=== PATIENT | male | born 1965 | race Caucasian/White ===

== ENCOUNTER 2020-09-13 22:02 | Observation (INO) | payer OTHER, SELFPAY ==
[2020-09-13 22:59] LABS: #Eosinphils 0.1 thou/uL (0.0-0.7); #Lymphocytes 1.4 thou/uL (1.20-3.40); #Monocytes 0.8 thou/uL (0.11-0.59); #Neutrophils 7.9 thou/uL (1.40-6.50); %Basophils 0.3 % (0.0-1.0); %Eosinophils 1.3 % (0.0-10.0); %Lymphocytes 13.5 % (21.0-51.0); %Monocytes 7.6 % (0.0-10.0); %Neutrophils 77.3 % (42.0-75.0); Hemoglobin 16.1 g/dL (14.0-18.0); Mean Corpuscular HGB CONC 34.2 g/dL (32.0-36.0); Mean Corpuscular Hemoglobin 31.6 pg (27.0-31.0); Mean Corpuscular Volume 92.4 fL (78.0-98.0); Mean Platelet Volume 7.5 fL (7.4-10.4); Platelet Count 160 thou/uL (130-400); RBC Distribution Width 12.2 % (11.5-14.5); White Blood Cell (WBC) Count 10.2 thou/uL (4.8-10.8)
[2020-09-14 03:13] VITALS: BMI 29.0
[2020-09-14] MEDS ORDERED: Ondansetron ODT 4 MG TAB PO PRN (06:15)
[2020-09-14] MEDS ORDERED: Ondansetron PF 4 MG/2 ML Vial IVP PRN (06:15)
[2020-09-14] MEDS ORDERED: hydrALAZINE 20 MG/ML VIAL SLOW IVP PRN (06:22)
[2020-09-14] MEDS ORDERED: Metoprolol Tartrate 5 MG/5 ML VIAL IVP PRN (06:23)
[2020-09-14 06:37] LABS: #Basophils 0.1 thou/uL (0.0-0.2); #Eosinphils 0.3 thou/uL (0.0-0.7); #Lymphocytes 2.6 thou/uL (1.20-3.40); #Monocytes 1.1 thou/uL (0.11-0.59); #Neutrophils 6.5 thou/uL (1.40-6.50); %Basophils 0.5 % (0.0-1.0); %Eosinophils 2.5 % (0.0-10.0); %Lymphocytes 24.4 % (21.0-51.0); %Monocytes 10.1 % (0.0-10.0); %Neutrophils 62.5 % (42.0-75.0); Hemoglobin 15.4 g/dL (14.0-18.0); Mean Corpuscular HGB CONC 33.8 g/dL (32.0-36.0); Mean Corpuscular Hemoglobin 31.4 pg (27.0-31.0); Mean Platelet Volume 7.3 fL (7.4-10.4); Platelet Count 154 thou/uL (130-400); RBC Distribution Width 12.2 % (11.5-14.5); Red Blood Cell (RBC) Count 4.91 mill/uL (4.70-6.10); White Blood Cell (WBC) Count 10.4 thou/uL (4.8-10.8)
[2020-09-14 09:29] LABS: SARS-CoV-2 PCR by NAA Not Detected (NotDetected)
[2020-09-14] MEDS: Acetaminophen 325 MG TAB PO PRN (10:21)
[2020-09-15 06:03] LABS: #Basophils 0.1 thou/uL (0.0-0.2); #Eosinphils 0.5 thou/uL (0.0-0.7); #Lymphocytes 2.7 thou/uL (1.20-3.40); #Monocytes 0.8 thou/uL (0.11-0.59); #Neutrophils 6.2 thou/uL (1.40-6.50); %Basophils 0.7 % (0.0-1.0); %Eosinophils 5.1 % (0.0-10.0); %Lymphocytes 26.4 % (21.0-51.0); %Monocytes 7.5 % (0.0-10.0); %Neutrophils 60.3 % (42.0-75.0); Hemoglobin 15.8 g/dL (14.0-18.0); Mean Corpuscular HGB CONC 32.9 g/dL (32.0-36.0); Mean Corpuscular Hemoglobin 30.4 pg (27.0-31.0); Mean Corpuscular Volume 92.5 fL (78.0-98.0); Mean Platelet Volume 7.3 fL (7.4-10.4); Platelet Count 149 thou/uL (130-400); RBC Distribution Width 12.4 % (11.5-14.5); Red Blood Cell (RBC) Count 5.21 mill/uL (4.70-6.10); White Blood Cell (WBC) Count 10.2 thou/uL (4.8-10.8)
[2020-09-15 06:24] LABS: Anion Gap 8 mmol/L (10-20); BUN (Urea Nitrogen) 10 mg/dL (8.4-25.7); Calc. Creatinine Clearance 111 mL/min (70-130); Calcium 8.5 mg/dL (7.8-10.44); Carbon Dioxide 28 mmol/L (22-29); Chloride 107 mmol/L (98-107); Glucose 93 mg/dL (70-105); Potassium 4.2 mmol/L (3.5-5.1); Sodium 139 mmol/L (136-145)
[2020-09-15 12:20] VITALS: BP 156/88; TEMP 98.2
[2020-09-15] MEDS: Acetaminophen 325 MG TAB PO PRN (14:01)
== END 2020-09-15 15:25 | disposition home or self-care (01) ==
LOC: ERS 22:02 → SURG A 09-14 01:51
PROVIDERS: ADMIT Student in an Organized Health Care Education/Training Program; ATTEND Internal Medicine
DX: R04.0 Epistaxis (principal); R00.0 Tachycardia, unspecified; I10 Essential (primary) hypertension; Z20.822 Contact with and (suspected) exposure to COVID-19
CPT/HCPCS: 36415; 80048; 85025; 87635; 99285; G0378; U0003; U0005

== ENCOUNTER 2021-11-28 09:55 | Inpatient (IN) | payer SELFPAY ==
[2021-11-28] MEDS ORDERED: metroNIDAZOLE 500 MG/100 ML BAG ONE (10:22)
[2021-11-28 11:31] LABS: INR-International Normal Ratio 1.1; PTT 32.5 sec (22.9-36.1); Prothrombin Time 13.9 sec (12.0-14.7)
[2021-11-28 13:22] LABS: SARS-CoV-2 NAA Rapid Test Not Detected (NotDetected)
[2021-11-28] MEDS ORDERED: HYDROmorphone 2 MG/ML VIAL ONE (15:39)
[2021-11-28] MEDS ORDERED: Famotidine/PF 20 mg/2ml Vial ONE (15:39)
[2021-11-28] MEDS ORDERED: fentaNYL Citrate/PF 100 MCG/2 ML SYRINGE ONE (15:39)
[2021-11-28] MEDS ORDERED: Sodium Chloride 0.9% 100 ML ONE (16:02)
[2021-11-28] MEDS ORDERED: Piperacillin/Tazobactam 3.375 GM VIAL ONE (16:02)
[2021-11-28] MEDS ORDERED: Ondansetron PF 4 MG/2 ML Vial ONE (16:13)
[2021-11-28] MEDS ORDERED: Dexamethasone 20 MG/5 ML VIAL ONE (16:13)
[2021-11-28] MEDS ORDERED: Glycopyrrolate 0.2 MG/ML 5 ML SYRINGE ONE (16:13)
[2021-11-28] MEDS ORDERED: Lidocaine 1% PF 5 ML VIAL ONE (16:13)
[2021-11-28] MEDS ORDERED: Succinylcholine 200 MG/10 ml SYRINGE FS ONE (16:13)
[2021-11-28] MEDS ORDERED: PHENYLEPHRINE-NS 100 MCG/ML 10 ML SYRINGE ONE (16:13)
[2021-11-28] MEDS ORDERED: PROPOFOL 200 MG/20 ML VIAL ONE (16:13)
[2021-11-28] MEDS ORDERED: Labetalol HCl 100 MG/20 ML VIAL ONE (16:13)
[2021-11-28] MEDS ORDERED: Ketorolac Tromethamine 30 MG/ML VIAL ONE (16:13)
[2021-11-28] MEDS ORDERED: Rocuronium Bromide 10 MG/ML (10ML VIAL) ONE (16:13)
[2021-11-28] MEDS ORDERED: Phenylephrine 10 MG/ML VIAL ONE (17:18)
[2021-11-28] MEDS ORDERED: Dexmedetomidine 200 MCG/2 ML VIAL ONE (18:00)
[2021-11-28] MEDS ORDERED: Ondansetron HCl/PF 4 MG/2 ML Vial IVP PRN (20:23)
[2021-11-28] MEDS ORDERED: Promethazine HCl 25 MG/ML VIAL IM PRN ×2 (20:23→20:43)
[2021-11-28] MEDS ORDERED: Promethazine HCl 25 MG/ML VIAL IVPB PRN (20:23)
[2021-11-28] MEDS ORDERED: Fentanyl 100 MCG/2 ML VIAL ONE (20:36)
[2021-11-28] MEDS ORDERED: Dextrose 50% Abboject 50 ML SYRINGE SLOW IVP PRN (20:43)
[2021-11-28] MEDS ORDERED: Dextrose 5% in Water 1,000 ML IV PRN (20:43)
[2021-11-28] MEDS ORDERED: Morphine 4 MG/ML VIAL SLOW IVP PRN (20:43)
[2021-11-28] MEDS ORDERED: Morphine 2 MG/ML VIAL SLOW IVP PRN (20:51)
[2021-11-28 22:51] VITALS: BMI 28.2
[2021-11-28] MEDS ORDERED: Famotidine/PF 20 mg/2ml Vial SLOW IVP SCH (23:30)
[2021-11-28] MEDS: Sodium Chloride 0.9% 1,000 ML IV SCH (23:38)
[2021-11-28] MEDS: Piperacillin/Tazobactam 3.375 GM in Sodium Chloride 0.9% 100 ML IVPB SCH (23:55)
[2021-11-29] MEDS: Sodium Chloride 0.9% 1,000 ML IV SCH ×2 (02:37→15:33)
[2021-11-29] MEDS ORDERED: Naloxone HCl 0.4 mg/ml Vial IV PRN (04:30)
[2021-11-29] MEDS: HYDROmorphone 10 MG in Sodium Chloride 0.9% 95 ML IVPB PRN (04:57)
[2021-11-29 06:17] LABS: ALT (SGPT) 22 U/L (8-55); AST (SGOT) 19 U/L (5-34); Albumin 3.6 g/dL (3.5-5.0); Alkaline Phosphatase 53 U/L (40-110); Anion Gap 11 mmol/L (10-20); BUN (Urea Nitrogen) 11 mg/dL (8.4-25.7); Bilirubin, Total 1.8 mg/dL (0.2-1.2); Calc. Creatinine Clearance 114 mL/min (70-130); Calcium 8.1 mg/dL (7.8-10.44); Carbon Dioxide 23 mmol/L (22-29); Chloride 110 mmol/L (98-107); Globulin 2.6 g/dL (2.4-3.5); Glucose 167 mg/dL (70-105); Magnesium 1.8 mg/dL (1.6-2.6); Potassium 3.9 mmol/L (3.5-5.1); Protein, Total 6.2 g/dL (6.0-8.3); Sodium 140 mmol/L (136-145)
[2021-11-29 06:25] LABS: Band 39 % (5-11); Lymphocytes 2 % (21-51); MDiff Complete? YES; Mean Corpuscular HGB CONC 32.3 g/dL (32.0-36.0); Mean Corpuscular Hemoglobin 30.6 pg (27.0-31.0); Mean Corpuscular Volume 94.7 fL (78.0-98.0); Mean Platelet Volume 7.3 fL (7.4-10.4); Neutrophil 59 % (42-75); Platelet Count 195 thou/uL (130-400); Platelet Morphology Comment Appears Adequate; RBC Distribution Width 12.5 % (11.5-14.5); Red Blood Cell (RBC) Count 4.92 mill/uL (4.70-6.10); White Blood Cell (WBC) Count 23.4 thou/uL (4.8-10.8)
[2021-11-29 06:26] LABS: Phosphorus 1.5 mg/dL (2.3-4.7)
[2021-11-29] MEDS: hydrALAZINE 20 MG/ML VIAL SLOW IVP PRN (06:31)
[2021-11-29] MEDS ORDERED: Magnesium 2 GM/50 ML(in water) 2 GM in Premix Bag 1 BAG IVPB SCH (07:45)
[2021-11-29] MEDS ORDERED: Lactated Ringer's 1,000 ML IV SCH (08:00)
[2021-11-29 08:19] LABS: Troponin I Less than 0.010 ng/mL (< 0.028)
[2021-11-29] MEDS: Piperacillin/Tazobactam 3.375 GM in Sodium Chloride 0.9% 100 ML IVPB SCH ×2 (08:22→15:33)
[2021-11-29] MEDS: Famotidine/PF 20 mg/2ml Vial SLOW IVP SCH (08:23)
[2021-11-29 09:16] LABS: Amphetamine Not Detected (NotDetected); Barbiturates Screen Not Detected (NotDetected); Benzodiazepine Screen Not Detected (NotDetected); Cocaine Metabolite Screen Not Detected (NotDetected); Methadone Not Detected (NotDetected); Methamphetamine Not Detected (NotDetected); Opiate Screen Detected (NotDetected); Oxycodone Screen Not Detected (NotDetected); Phencyclidine (PCP) Not Detected (NotDetected); THC/Cannabinoid Screen Not Detected (NotDetected); Tricyclic Screen Not Detected (NotDetected)
[2021-11-29] MEDS ORDERED: Famotidine 40 MG/4 ML VIAL SLOW IVP SCH (22:45)
[2021-11-30] MEDS: Piperacillin/Tazobactam 3.375 GM in Sodium Chloride 0.9% 100 ML IVPB SCH ×4 (00:35→23:31)
[2021-11-30] MEDS: Sodium Chloride 0.9% 1,000 ML IV SCH ×3 (01:50→14:43)
[2021-11-30] MEDS: Famotidine/PF 20 mg/2ml Vial SLOW IVP SCH (01:50)
[2021-11-30] MEDS ORDERED: Sodium Chloride 0.9% (PF) 10 ML VIAL FS PRN (08:30)
[2021-11-30] MEDS: Enoxaparin Sodium 40 MG/0.4 ML SYRINGE SC SCH (08:33)
[2021-11-30] MEDS: Pantoprazole 40 MG VIAL IVP SCH (08:33)
[2021-11-30 08:51] LABS: Mean Corpuscular HGB CONC 32.2 g/dL (32.0-36.0); Mean Corpuscular Hemoglobin 30.6 pg (27.0-31.0); Mean Corpuscular Volume 94.8 fL (78.0-98.0); Mean Platelet Volume 7.4 fL (7.4-10.4); Platelet Count 192 thou/uL (130-400); RBC Distribution Width 12.4 % (11.5-14.5); Red Blood Cell (RBC) Count 4.56 mill/uL (4.70-6.10); White Blood Cell (WBC) Count 20.9 thou/uL (4.8-10.8)
[2021-11-30 08:52] LABS: Anion Gap 10 mmol/L (10-20); BUN (Urea Nitrogen) 11 mg/dL (8.4-25.7); Calc. Creatinine Clearance 126 mL/min (70-130); Calcium 8.4 mg/dL (7.8-10.44); Carbon Dioxide 24 mmol/L (22-29); Chloride 107 mmol/L (98-107); Glucose 98 mg/dL (70-105); Magnesium 2.1 mg/dL (1.6-2.6); Sodium 137 mmol/L (136-145)
[2021-11-30 08:54] LABS: Lymphocytes 10 % (21-51); MDiff Complete? YES; Monocytes 1 % (0-10); Neutrophil 89 % (42-75); Platelet Morphology Comment Appears Adequate; RBC Morphology Normal
[2021-11-30] MEDS ORDERED: Famotidine 20 MG TAB PO SCH (09:00)
[2021-11-30] MEDS ORDERED: Famotidine 40 MG/4 ML VIAL SLOW IVP SCH (09:00)
[2021-11-30 09:08] LABS: Phosphorus 1.3 mg/dL (2.3-4.7)
[2021-11-30] MEDS ORDERED: Sodium Phosphate 30 MMOL in Sodium Chloride 0.9% 250 ML 250 ML IVPB SCH (11:00)
[2021-11-30] MEDS: HYDROmorphone 10 MG in Sodium Chloride 0.9% 95 ML IVPB PRN (20:00)
[2021-12-01 06:18] LABS: #Eosinphils 0.1 thou/uL (0.0-0.7); #Lymphocytes 1.6 thou/uL (1.20-3.40); #Monocytes 1.2 thou/uL (0.11-0.59); #Neutrophils 9.7 thou/uL (1.40-6.50); %Eosinophils 1.1 % (0.0-10.0); %Lymphocytes 12.9 % (21.0-51.0); %Monocytes 9.2 % (0.0-10.0); %Neutrophils 76.9 % (42.0-75.0); Hemoglobin 13.2 g/dL (14.0-18.0); Mean Corpuscular HGB CONC 32.4 g/dL (32.0-36.0); Mean Corpuscular Hemoglobin 30.4 pg (27.0-31.0); Mean Corpuscular Volume 93.9 fL (78.0-98.0); Mean Platelet Volume 7.2 fL (7.4-10.4); Platelet Count 166 thou/uL (130-400); RBC Distribution Width 12.1 % (11.5-14.5); Red Blood Cell (RBC) Count 4.35 mill/uL (4.70-6.10); White Blood Cell (WBC) Count 12.6 thou/uL (4.8-10.8)
[2021-12-01] MEDS: Sodium Chloride 0.9% 1,000 ML IV SCH ×3 (06:38→16:11)
[2021-12-01 06:52] LABS: Anion Gap 11 mmol/L (10-20); BUN (Urea Nitrogen) 11 mg/dL (8.4-25.7); Calc. Creatinine Clearance 130 mL/min (70-130); Calcium 8.4 mg/dL (7.8-10.44); Carbon Dioxide 24 mmol/L (22-29); Chloride 106 mmol/L (98-107); Glucose 88 mg/dL (70-105); Phosphorus 1.9 mg/dL (2.3-4.7); Potassium 3.6 mmol/L (3.5-5.1); Sodium 137 mmol/L (136-145)
[2021-12-01] MEDS ORDERED: Potassium Phosphate 30 MMOL in Sodium Chloride 0.9% 250 ML 250 ML IVPB SCH (09:00)
[2021-12-01] MEDS: Piperacillin/Tazobactam 3.375 GM in Sodium Chloride 0.9% 100 ML IVPB SCH ×2 (09:00→16:11)
[2021-12-01] MEDS: Enoxaparin Sodium 40 MG/0.4 ML SYRINGE SC SCH (09:19)
[2021-12-01] MEDS: Pantoprazole 40 MG VIAL IVP SCH (09:31)
[2021-12-01] MEDS: hydrALAZINE 20 MG/ML VIAL SLOW IVP PRN (11:36)
[2021-12-01] MEDS ORDERED: Labetalol HCl 100 MG/20 ML VIAL SLOW IVP PRN (12:47)
[2021-12-02] MEDS: Piperacillin/Tazobactam 3.375 GM in Sodium Chloride 0.9% 100 ML IVPB SCH ×4 (00:45→23:52)
[2021-12-02] MEDS: Sodium Chloride 0.9% 1,000 ML IV SCH ×3 (01:00→10:20)
[2021-12-02 05:39] LABS: #Eosinphils 0.3 thou/uL (0.0-0.7); #Lymphocytes 1.3 thou/uL (1.20-3.40); #Monocytes 1.3 thou/uL (0.11-0.59); %Basophils 0.1 % (0.0-1.0); %Eosinophils 2.2 % (0.0-10.0); %Lymphocytes 9.7 % (21.0-51.0); %Monocytes 10.1 % (0.0-10.0); %Neutrophils 77.9 % (42.0-75.0); Hemoglobin 14.3 g/dL (14.0-18.0); Mean Corpuscular HGB CONC 32.3 g/dL (32.0-36.0); Mean Corpuscular Hemoglobin 30.5 pg (27.0-31.0); Mean Corpuscular Volume 94.6 fL (78.0-98.0); Mean Platelet Volume 7.4 fL (7.4-10.4); Platelet Count 218 thou/uL (130-400); RBC Distribution Width 12.3 % (11.5-14.5); Red Blood Cell (RBC) Count 4.68 mill/uL (4.70-6.10); White Blood Cell (WBC) Count 12.9 thou/uL (4.8-10.8)
[2021-12-02 06:01] LABS: ALT (SGPT) 19 U/L (8-55); AST (SGOT) 16 U/L (5-34); Albumin 3.5 g/dL (3.5-5.0); Alkaline Phosphatase 51 U/L (40-110); Bilirubin, Direct 1.9 mg/dL (0.1-0.3); Bilirubin, Total 2.9 mg/dL (0.2-1.2); Protein, Total 6.4 g/dL (6.0-8.3)
[2021-12-02 06:05] LABS: Anion Gap 15 mmol/L (10-20); BUN (Urea Nitrogen) 13 mg/dL (8.4-25.7); Calc. Creatinine Clearance 128 mL/min (70-130); Calcium 8.8 mg/dL (7.8-10.44); Carbon Dioxide 22 mmol/L (22-29); Chloride 108 mmol/L (98-107); Glucose 91 mg/dL (70-105); Magnesium 2.1 mg/dL (1.6-2.6); Phosphorus 2.8 mg/dL (2.3-4.7); Potassium 3.9 mmol/L (3.5-5.1); Sodium 141 mmol/L (136-145)
[2021-12-02] MEDS ORDERED: Sodium Phosphate 30 MMOL in Sodium Chloride 0.9% 250 ML 250 ML IVPB SCH (07:30)
[2021-12-02] MEDS: Pantoprazole 40 MG VIAL IVP SCH (08:03)
[2021-12-02] MEDS: Enoxaparin Sodium 40 MG/0.4 ML SYRINGE SC SCH (08:05)
[2021-12-02] MEDS: HYDROmorphone 10 MG in Sodium Chloride 0.9% 95 ML IVPB PRN (09:22)
[2021-12-03] MEDS: hydrALAZINE 20 MG/ML VIAL SLOW IVP PRN (00:02)
[2021-12-03 06:19] LABS: #Eosinphils 0.6 thou/uL (0.0-0.7); #Lymphocytes 1.5 thou/uL (1.20-3.40); #Monocytes 1.1 thou/uL (0.11-0.59); #Neutrophils 11.2 thou/uL (1.40-6.50); %Basophils 0.1 % (0.0-1.0); %Lymphocytes 10.2 % (21.0-51.0); %Monocytes 7.7 % (0.0-10.0); %Neutrophils 78.1 % (42.0-75.0); Hemoglobin 14.2 g/dL (14.0-18.0); Mean Corpuscular HGB CONC 33.8 g/dL (32.0-36.0); Mean Corpuscular Hemoglobin 31.2 pg (27.0-31.0); Mean Corpuscular Volume 92.4 fL (78.0-98.0); Platelet Count 249 thou/uL (130-400); RBC Distribution Width 12.8 % (11.5-14.5); Red Blood Cell (RBC) Count 4.55 mill/uL (4.70-6.10); White Blood Cell (WBC) Count 14.4 thou/uL (4.8-10.8)
[2021-12-03 08:46] LABS: Chloride 108 mmol/L (98-107); Potassium 4.1 mmol/L (3.5-5.1); Sodium 145 mmol/L (136-145)
[2021-12-03 08:47] LABS: Calcium 9.6 mg/dL (7.8-10.44); Glucose 92 mg/dL (70-105)
[2021-12-03 08:49] LABS: Anion Gap 15 mmol/L (10-20); Carbon Dioxide 26 mmol/L (22-29)
[2021-12-03 08:50] LABS: Phosphorus 2.5 mg/dL (2.3-4.7)
[2021-12-03 08:51] LABS: BUN (Urea Nitrogen) 15 mg/dL (8.4-25.7); Calc. Creatinine Clearance 130 mL/min (70-130)
[2021-12-03 08:52] LABS: Magnesium 2.2 mg/dL (1.6-2.6)
[2021-12-03] MEDS: HYDROmorphone 10 MG in Sodium Chloride 0.9% 95 ML IVPB PRN (09:47)
[2021-12-03] MEDS: Enoxaparin Sodium 40 MG/0.4 ML SYRINGE SC SCH (09:48)
[2021-12-03] MEDS: Piperacillin/Tazobactam 3.375 GM in Sodium Chloride 0.9% 100 ML IVPB SCH ×2 (09:49→16:55)
[2021-12-03] MEDS: Pantoprazole 40 MG VIAL IVP SCH (09:50)
[2021-12-03] MEDS ORDERED: Sodium Phosphate 15 MMOL in Sodium Chloride 0.9% 250 ML 250 ML IVPB SCH (10:00)
[2021-12-03] MEDS: Sodium Chloride 0.9% 1,000 ML IV SCH (10:43)
[2021-12-03] MEDS ORDERED: traMADol HCl 50 MG TAB PO PRN (10:54)
[2021-12-03] MEDS: Acetaminophen 500 MG TAB PO SCH ×2 (13:31→18:30)
[2021-12-03] MEDS: Amlodipine 5 MG TAB PO SCH (14:32)
[2021-12-03] MEDS ORDERED: Indomethacin 50 MG SUPP PR SCH (18:30)
[2021-12-03] MEDS: Lactated Ringer's 1,000 ML IV SCH (18:36)
[2021-12-04] MEDS: Acetaminophen 500 MG TAB PO SCH ×5 (00:12→23:11)
[2021-12-04] MEDS: Piperacillin/Tazobactam 3.375 GM in Sodium Chloride 0.9% 100 ML IVPB SCH (00:13)
[2021-12-04] MEDS: Lactated Ringer's 1,000 ML IV SCH ×3 (03:01→23:11)
[2021-12-04] MEDS: Amlodipine 5 MG TAB PO SCH (08:54)
[2021-12-04] MEDS: Pantoprazole 40 MG VIAL IVP SCH (08:54)
[2021-12-04] MEDS: Enoxaparin Sodium 40 MG/0.4 ML SYRINGE SC SCH (08:54)
[2021-12-04] MEDS ORDERED: Ondansetron PF 4 MG/2 ML Vial ONE ×2 (10:23→11:14)
[2021-12-04] MEDS ORDERED: Iopamidol 30 ML ONE (10:45)
[2021-12-04] MEDS ORDERED: Indomethacin 50 MG SUPP ONE (10:46)
[2021-12-04] MEDS ORDERED: Midazolam HCl 2 mg/2 ml Vial ONE (10:59)
[2021-12-04] MEDS ORDERED: Fentanyl 100 MCG/2 ML VIAL ONE ×3 (11:00→14:02)
[2021-12-04] MEDS ORDERED: Levofloxacin 500 mg/D5W 100 ml Premix Bag ONE (11:02)
[2021-12-04] MEDS ORDERED: Dexamethasone 20 MG/5 ML VIAL ONE (11:14)
[2021-12-04] MEDS ORDERED: Lidocaine 1% PF 5 ML VIAL ONE (11:14)
[2021-12-04] MEDS ORDERED: PROPOFOL 200 MG/20 ML VIAL ONE (11:14)
[2021-12-04] MEDS ORDERED: Rocuronium Bromide 10 MG/ML (10ML VIAL) ONE (11:14)
[2021-12-04] MEDS ORDERED: Succinylcholine 200 MG/10 ml SYRINGE FS ONE (11:14)
[2021-12-04] MEDS ORDERED: PHENYLEPHRINE-NS 100 MCG/ML 10 ML SYRINGE ONE (11:14)
[2021-12-04] MEDS ORDERED: Ondansetron HCl/PF 4 MG/2 ML Vial IVP PRN (12:23)
[2021-12-04] MEDS ORDERED: Promethazine HCl 25 MG/ML VIAL IVPB PRN (12:23)
[2021-12-04] MEDS ORDERED: Promethazine HCl 25 MG/ML VIAL IM PRN (12:23)
[2021-12-04] MEDS: traMADol HCl 50 MG TAB PO PRN (18:09)
[2021-12-05] MEDS: traMADol HCl 50 MG TAB PO PRN ×2 (01:08→10:03)
[2021-12-05] MEDS: hydrALAZINE 20 MG/ML VIAL SLOW IVP PRN (04:37)
[2021-12-05] MEDS: Acetaminophen 500 MG TAB PO SCH ×4 (06:23→23:46)
[2021-12-05 08:45] LABS: Anion Gap 16 mmol/L (10-20); BUN (Urea Nitrogen) 15 mg/dL (8.4-25.7); Calc. Creatinine Clearance 148 mL/min (70-130); Calcium 8.6 mg/dL (7.8-10.44); Carbon Dioxide 25 mmol/L (22-29); Chloride 103 mmol/L (98-107); Glucose 103 mg/dL (70-105); Magnesium 1.8 mg/dL (1.6-2.6); Phosphorus 2.7 mg/dL (2.3-4.7); Potassium 3.5 mmol/L (3.5-5.1); Sodium 140 mmol/L (136-145)
[2021-12-05] MEDS: Ondansetron PF 4 MG/2 ML Vial IVP PRN (09:54)
[2021-12-05] MEDS: Pantoprazole 40 MG VIAL IVP SCH (09:57)
[2021-12-05] MEDS: Enoxaparin Sodium 40 MG/0.4 ML SYRINGE SC SCH (09:57)
[2021-12-05] MEDS: Amlodipine 10 MG TAB PO SCH (09:58)
[2021-12-05] MEDS ORDERED: Labetalol HCl 100 MG/20 ML VIAL SLOW IVP PRN (13:35)
[2021-12-05] MEDS ORDERED: Magnesium 2 GM/50 ML(in water) 3 GM in Premix Bag 1 BAG IVPB SCH (13:45)
[2021-12-05 14:24] LABS: Band 11 % (5-11); Hemoglobin 14.9 g/dL (14.0-18.0); Lymphocytes 3 % (21-51); MDiff Complete? YES; Mean Corpuscular HGB CONC 31.6 g/dL (32.0-36.0); Mean Corpuscular Hemoglobin 29.6 pg (27.0-31.0); Mean Corpuscular Volume 93.6 fL (78.0-98.0); Mean Platelet Volume 7.8 fL (7.4-10.4); Monocytes 5 % (0-10); Neutrophil 78 % (42-75); Platelet Count 300 thou/uL (130-400); Platelet Morphology Comment Appears Adequate; RBC Distribution Width 12.7 % (11.5-14.5); RBC Morphology Normal; Reactive Lymphocytes 3 % (0-10); Red Blood Cell (RBC) Count 5.03 mill/uL (4.70-6.10); White Blood Cell (WBC) Count 22.4 thou/uL (4.8-10.8)
[2021-12-05] MEDS ORDERED: MAGNESIUM SULFATE IVPB SCH (14:30)
[2021-12-05] MEDS ORDERED: SODIUM CHLORIDE 0.9% IVPB SCH (14:30)
[2021-12-05] MEDS ORDERED: POTASSIUM CHLORIDE IVPB SCH (14:30)
[2021-12-05] MEDS ORDERED: Potassium Phosphate 30 MMOL in Sodium Chloride 0.9% 250 ML 250 ML IVPB SCH (17:00)
[2021-12-05] MEDS ORDERED: Lactated Ringer's 500 ML IV SCH (19:00)
[2021-12-06 06:18] LABS: #Eosinphils 0.5 thou/uL (0.0-0.7); #Lymphocytes 1.1 thou/uL (1.20-3.40); #Monocytes 1.3 thou/uL (0.11-0.59); #Neutrophils 13.2 thou/uL (1.40-6.50); %Basophils 0.1 % (0.0-1.0); %Eosinophils 2.8 % (0.0-10.0); %Neutrophils 82.2 % (42.0-75.0); Hemoglobin 13.5 g/dL (14.0-18.0); Mean Corpuscular HGB CONC 32.3 g/dL (32.0-36.0); Mean Corpuscular Hemoglobin 30.4 pg (27.0-31.0); Mean Corpuscular Volume 94.2 fL (78.0-98.0); Mean Platelet Volume 7.2 fL (7.4-10.4); Platelet Count 269 thou/uL (130-400); RBC Distribution Width 12.8 % (11.5-14.5); Red Blood Cell (RBC) Count 4.45 mill/uL (4.70-6.10); White Blood Cell (WBC) Count 16.1 thou/uL (4.8-10.8)
[2021-12-06] MEDS: Acetaminophen 500 MG TAB PO SCH ×3 (06:18→18:42)
[2021-12-06 06:43] LABS: Anion Gap 11 mmol/L (10-20); BUN (Urea Nitrogen) 18 mg/dL (8.4-25.7); Calc. Creatinine Clearance 133 mL/min (70-130); Calcium 8.5 mg/dL (7.8-10.44); Carbon Dioxide 30 mmol/L (22-29); Chloride 105 mmol/L (98-107); Glucose 95 mg/dL (70-105); Magnesium 2.3 mg/dL (1.6-2.6); Phosphorus 2.8 mg/dL (2.3-4.7); Sodium 142 mmol/L (136-145)
[2021-12-06 09:02] LABS: Troponin I Less than 0.010 ng/mL (< 0.028)
[2021-12-06] MEDS: Enoxaparin Sodium 40 MG/0.4 ML SYRINGE SC SCH (09:08)
[2021-12-06] MEDS: Amlodipine 10 MG TAB PO SCH (09:09)
[2021-12-06] MEDS: Pantoprazole 40 MG VIAL IVP SCH (09:09)
[2021-12-06] MEDS: Ondansetron PF 4 MG/2 ML Vial IVP PRN (10:21)
[2021-12-07] MEDS: Acetaminophen 500 MG TAB PO SCH ×3 (00:07→19:35)
[2021-12-07] MEDS: Ondansetron PF 4 MG/2 ML Vial IVP PRN ×2 (04:53→10:06)
[2021-12-07 06:24] LABS: #Eosinphils 0.4 thou/uL (0.0-0.7); #Monocytes 1.2 thou/uL (0.11-0.59); #Neutrophils 14.2 thou/uL (1.40-6.50); %Basophils 0.1 % (0.0-1.0); %Eosinophils 2.3 % (0.0-10.0); %Lymphocytes 6.1 % (21.0-51.0); %Monocytes 7.2 % (0.0-10.0); %Neutrophils 84.3 % (42.0-75.0); Hemoglobin 13.4 g/dL (14.0-18.0); Mean Corpuscular HGB CONC 31.9 g/dL (32.0-36.0); Mean Corpuscular Hemoglobin 30.4 pg (27.0-31.0); Mean Corpuscular Volume 95.5 fL (78.0-98.0); Mean Platelet Volume 7.5 fL (7.4-10.4); Platelet Count 288 thou/uL (130-400); RBC Distribution Width 12.8 % (11.5-14.5); White Blood Cell (WBC) Count 16.9 thou/uL (4.8-10.8)
[2021-12-07 08:22] LABS: Band 14 % (5-11); Eosinophils 3 % (0-10); Lymphocytes 4 % (21-51); Monocytes 5 % (0-10)
[2021-12-07 08:24] LABS: Neutrophil 73 % (42-75)
[2021-12-07 08:25] LABS: Platelet Morphology Comment Appears Adequate; Polychromasia SLIGHT = 2-3 cells (100X) (0-2/hpf)
[2021-12-07] MEDS ORDERED: Ibuprofen 200 MG TAB PO SCH (09:30)
[2021-12-07] MEDS: Pantoprazole 40 MG VIAL IVP SCH (10:06)
[2021-12-07] MEDS: Enoxaparin Sodium 40 MG/0.4 ML SYRINGE SC SCH (10:06)
[2021-12-07] MEDS: Amlodipine 10 MG TAB PO SCH (10:06)
[2021-12-07] MEDS: Sodium Chloride 0.9% 1,000 ML IV SCH (10:07)
[2021-12-07] MEDS ORDERED: Ibuprofen 100 MG/5 ML UDCUP PO PRN (17:58)
[2021-12-07] MEDS ORDERED: Sodium Chloride 0.9% 500 ML IV SCH (18:00)
[2021-12-07] MEDS: Bacitracin 1 PK TOP SCH ×2 (19:35→20:27)
[2021-12-08] MEDS: Acetaminophen 500 MG TAB PO SCH ×4 (01:02→18:02)
[2021-12-08] MEDS: Enoxaparin Sodium 40 MG/0.4 ML SYRINGE SC SCH (08:35)
[2021-12-08] MEDS: Pantoprazole 40 MG VIAL IVP SCH (08:35)
[2021-12-08] MEDS: Amlodipine 10 MG TAB PO SCH (08:35)
[2021-12-08] MEDS: Bacitracin 1 PK TOP SCH ×3 (08:36→20:43)
[2021-12-08] MEDS: Ondansetron PF 4 MG/2 ML Vial IVP PRN (20:42)
[2021-12-09] MEDS: Acetaminophen 500 MG TAB PO SCH ×4 (00:18→17:26)
[2021-12-09] MEDS: Bacitracin 1 PK TOP SCH ×3 (08:25→20:40)
[2021-12-09] MEDS: Amlodipine 10 MG TAB PO SCH (08:25)
[2021-12-09] MEDS: Enoxaparin Sodium 40 MG/0.4 ML SYRINGE SC SCH (08:26)
[2021-12-09] MEDS: Pantoprazole 40 MG VIAL IVP SCH (08:26)
[2021-12-09] MEDS: Ondansetron PF 4 MG/2 ML Vial IVP PRN (13:51)
[2021-12-10] MEDS: Acetaminophen 500 MG TAB PO SCH ×4 (00:31→19:35)
[2021-12-10] MEDS ORDERED: Iopamidol-370 76% 500 ML 1 ML ONE (08:56)
[2021-12-10] MEDS: Enoxaparin Sodium 40 MG/0.4 ML SYRINGE SC SCH (10:08)
[2021-12-10] MEDS: Pantoprazole 40 MG VIAL IVP SCH (10:08)
[2021-12-10] MEDS: Amlodipine 10 MG TAB PO SCH (10:08)
[2021-12-10] MEDS: Bacitracin 1 PK TOP SCH ×3 (10:10→21:23)
[2021-12-10 13:48] LABS: #Eosinphils 0.3 thou/uL (0.0-0.7); #Lymphocytes 1.8 thou/uL (1.20-3.40); #Monocytes 1.6 thou/uL (0.11-0.59); #Neutrophils 14.3 thou/uL (1.40-6.50); %Basophils 0.1 % (0.0-1.0); %Eosinophils 1.7 % (0.0-10.0); %Monocytes 8.9 % (0.0-10.0); %Neutrophils 79.2 % (42.0-75.0); Hemoglobin 12.7 g/dL (14.0-18.0); Mean Corpuscular HGB CONC 31.4 g/dL (32.0-36.0); Mean Corpuscular Hemoglobin 29.8 pg (27.0-31.0); Mean Corpuscular Volume 94.9 fL (78.0-98.0); Mean Platelet Volume 8.2 fL (7.4-10.4); Platelet Count 323 thou/uL (130-400); RBC Distribution Width 12.6 % (11.5-14.5); Red Blood Cell (RBC) Count 4.25 mill/uL (4.70-6.10); White Blood Cell (WBC) Count 18.1 thou/uL (4.8-10.8)
[2021-12-10 14:05] LABS: ALT (SGPT) 39 U/L (8-55); AST (SGOT) 26 U/L (5-34); Albumin 2.9 g/dL (3.5-5.0); Alkaline Phosphatase 108 U/L (40-110); Anion Gap 13 mmol/L (10-20); BUN (Urea Nitrogen) 12 mg/dL (8.4-25.7); Bilirubin, Direct 0.5 mg/dL (0.1-0.3); Bilirubin, Total 0.8 mg/dL (0.2-1.2); Calc. Creatinine Clearance 126 mL/min (70-130); Calcium 8.7 mg/dL (7.8-10.44); Carbon Dioxide 30 mmol/L (22-29); Chloride 102 mmol/L (98-107); Glucose 129 mg/dL (70-105); Phosphorus 2.5 mg/dL (2.3-4.7); Potassium 3.1 mmol/L (3.5-5.1); Protein, Total 6.2 g/dL (6.0-8.3); Sodium 142 mmol/L (136-145)
[2021-12-10] MEDS ORDERED: Potassium Chloride 20 MEQ TAB PO SCH (14:15)
[2021-12-10] MEDS ORDERED: Magnesium 2 GM/50 ML(in water) 2 GM in Premix Bag 1 BAG IVPB SCH (14:15)
[2021-12-10] MEDS ORDERED: Potassium Phosphate 30 MMOL, Magnesium Sulfate 2 GM in Sodium Chloride 0.9% 250 ML 250 ML IVPB SCH (14:30)
[2021-12-10] MEDS ORDERED: Piperacillin/Tazobactam 3.375 GM in Sodium Chloride 0.9% 100 ML IVPB SCH ×2 (20:00→23:59)
[2021-12-11] MEDS: Acetaminophen 500 MG TAB PO SCH ×4 (00:51→15:44)
[2021-12-11] MEDS: Piperacillin/Tazobactam 3.375 GM in Sodium Chloride 0.9% 100 ML IVPB SCH ×4 (01:18→23:07)
[2021-12-11] MEDS: traMADol HCl 50 MG TAB PO PRN (04:42)
[2021-12-11] MEDS: Amlodipine 10 MG TAB PO SCH (07:37)
[2021-12-11] MEDS: Bacitracin 1 PK TOP SCH ×3 (08:14→21:43)
[2021-12-11] MEDS: Pantoprazole 40 MG VIAL IVP SCH (08:14)
[2021-12-11 08:47] LABS: #Eosinphils 0.4 thou/uL (0.0-0.7); #Lymphocytes 1.2 thou/uL (1.20-3.40); #Monocytes 1.4 thou/uL (0.11-0.59); #Neutrophils 11.4 thou/uL (1.40-6.50); %Basophils 0.1 % (0.0-1.0); %Eosinophils 2.8 % (0.0-10.0); %Lymphocytes 8.2 % (21.0-51.0); %Monocytes 9.6 % (0.0-10.0); %Neutrophils 79.3 % (42.0-75.0); Hemoglobin 12.8 g/dL (14.0-18.0); Mean Corpuscular HGB CONC 32.6 g/dL (32.0-36.0); Mean Corpuscular Hemoglobin 30.9 pg (27.0-31.0); Mean Corpuscular Volume 94.8 fL (78.0-98.0); Mean Platelet Volume 7.8 fL (7.4-10.4); Platelet Count 314 thou/uL (130-400); RBC Distribution Width 12.9 % (11.5-14.5); Red Blood Cell (RBC) Count 4.15 mill/uL (4.70-6.10); White Blood Cell (WBC) Count 14.4 thou/uL (4.8-10.8)
[2021-12-11 09:18] LABS: Anion Gap 13 mmol/L (10-20); BUN (Urea Nitrogen) 8 mg/dL (8.4-25.7); Calc. Creatinine Clearance 130 mL/min (70-130); Calcium 8.4 mg/dL (7.8-10.44); Carbon Dioxide 25 mmol/L (22-29); Chloride 108 mmol/L (98-107); Glucose 101 mg/dL (70-105); Magnesium 2.4 mg/dL (1.6-2.6); Phosphorus 3.4 mg/dL (2.3-4.7); Potassium 3.9 mmol/L (3.5-5.1); Sodium 142 mmol/L (136-145)
[2021-12-11] MEDS ORDERED: PHOS-NAK 1 PKT PACK PO SCH (10:00)
[2021-12-11] MEDS ORDERED: Sodium Bicarbonate 2.5 MEQ/5 ML VIAL ONE (10:16)
[2021-12-11] MEDS ORDERED: Fentanyl 100 MCG/2 ML VIAL ONE (10:17)
[2021-12-11] MEDS: Enoxaparin Sodium 40 MG/0.4 ML SYRINGE SC SCH (21:42)
[2021-12-11] MEDS ORDERED: Sodium Chloride 0.9% 1,000 ML IV SCH (23:00)
[2021-12-12] MEDS: Acetaminophen 500 MG TAB PO SCH ×5 (01:51→23:09)
[2021-12-12] MEDS ORDERED: fentaNYL Citrate/PF 100 MCG/2 ML SYRINGE ONE (06:31)
[2021-12-12 06:33] LABS: ALT (SGPT) 44 U/L (8-55); AST (SGOT) 30 U/L (5-34); Albumin 2.8 g/dL (3.5-5.0); Alkaline Phosphatase 100 U/L (40-110); Anion Gap 11 mmol/L (10-20); BUN (Urea Nitrogen) 8 mg/dL (8.4-25.7); Bilirubin, Total 0.9 mg/dL (0.2-1.2); Calc. Creatinine Clearance 130 mL/min (70-130); Calcium 8.5 mg/dL (7.8-10.44); Carbon Dioxide 25 mmol/L (22-29); Chloride 108 mmol/L (98-107); Globulin 3.3 g/dL (2.4-3.5); Glucose 101 mg/dL (70-105); Magnesium 2.3 mg/dL (1.6-2.6); Phosphorus 2.9 mg/dL (2.3-4.7); Potassium 3.9 mmol/L (3.5-5.1); Protein, Total 6.1 g/dL (6.0-8.3); Sodium 140 mmol/L (136-145)
[2021-12-12] MEDS ORDERED: EPINEPHrine 1 MG/ML AMP ONE (07:16)
[2021-12-12] MEDS ORDERED: Bupivacaine 0.25% HCL 30 ML VIAL ONE (07:16)
[2021-12-12] MEDS ORDERED: Sodium Chloride 0.9% 100 ML ONE (07:25)
[2021-12-12] MEDS ORDERED: Piperacillin/Tazobactam 3.375 GM VIAL ONE (07:25)
[2021-12-12] MEDS: Piperacillin/Tazobactam 3.375 GM in Sodium Chloride 0.9% 100 ML IVPB SCH ×3 (08:00→23:08)
[2021-12-12] MEDS ORDERED: HYDROmorphone 2 MG/ML VIAL ONE (08:06)
[2021-12-12] MEDS ORDERED: PROPOFOL 200 MG/20 ML VIAL ONE (08:11)
[2021-12-12] MEDS ORDERED: PHENYLEPHRINE-NS 100 MCG/ML 10 ML SYRINGE ONE (08:11)
[2021-12-12] MEDS ORDERED: Lidocaine 1% PF 5 ML VIAL ONE (08:11)
[2021-12-12] MEDS ORDERED: Ondansetron PF 4 MG/2 ML Vial ONE (08:11)
[2021-12-12] MEDS ORDERED: Rocuronium Bromide 10 MG/ML (10ML VIAL) ONE (08:11)
[2021-12-12] MEDS ORDERED: Glycopyrrolate 0.2 MG/ML 5 ML SYRINGE ONE (08:11)
[2021-12-12] MEDS ORDERED: Succinylcholine 200 MG/10 ml SYRINGE FS ONE (08:11)
[2021-12-12] MEDS ORDERED: Dexamethasone 20 MG/5 ML VIAL ONE (08:11)
[2021-12-12] MEDS: Bacitracin 1 PK TOP SCH ×3 (09:00→20:49)
[2021-12-12] MEDS: Amlodipine 10 MG TAB PO SCH (09:00)
[2021-12-12] MEDS: Pantoprazole 40 MG VIAL IVP SCH (09:00)
[2021-12-12] MEDS ORDERED: Promethazine HCl 25 MG/ML VIAL IM PRN (10:51)
[2021-12-12] MEDS ORDERED: Ondansetron HCl/PF 4 MG/2 ML Vial IVP PRN (10:51)
[2021-12-12] MEDS ORDERED: Promethazine HCl 25 MG/ML VIAL IVPB PRN (10:51)
[2021-12-12] MEDS ORDERED: Fentanyl 100 MCG/2 ML VIAL ONE (11:02)
[2021-12-12] MEDS ORDERED: PHOS-NAK 1 PKT PACK PO SCH (12:30)
[2021-12-12] MEDS: Sodium Chloride 0.9% 1,000 ML IV SCH (14:07)
[2021-12-12] MEDS: traMADol HCl 50 MG TAB PO PRN (14:08)
[2021-12-12 15:58] LABS: #Eosinphils 0.1 thou/uL (0.0-0.7); #Lymphocytes 0.7 thou/uL (1.20-3.40); #Monocytes 0.2 thou/uL (0.11-0.59); #Neutrophils 16.3 thou/uL (1.40-6.50); %Eosinophils 0.3 % (0.0-10.0); %Lymphocytes 3.8 % (21.0-51.0); %Monocytes 1.2 % (0.0-10.0); %Neutrophils 94.7 % (42.0-75.0); Hemoglobin 11.2 g/dL (14.0-18.0); Mean Corpuscular HGB CONC 31.2 g/dL (32.0-36.0); Mean Corpuscular Hemoglobin 29.8 pg (27.0-31.0); Mean Corpuscular Volume 95.6 fL (78.0-98.0); Mean Platelet Volume 7.4 fL (7.4-10.4); Platelet Count 392 thou/uL (130-400); RBC Distribution Width 12.9 % (11.5-14.5); Red Blood Cell (RBC) Count 3.77 mill/uL (4.70-6.10); White Blood Cell (WBC) Count 17.2 thou/uL (4.8-10.8)
[2021-12-12 16:08] LABS: INR-International Normal Ratio 1.2; Prothrombin Time 15.8 sec (12.0-14.7)
[2021-12-12 16:09] LABS: PTT 39.9 sec (22.9-36.1)
[2021-12-12] MEDS: Enoxaparin Sodium 40 MG/0.4 ML SYRINGE SC SCH (20:49)
[2021-12-13] MEDS: traMADol HCl 50 MG TAB PO PRN (02:52)
[2021-12-13 05:47] LABS: #Eosinphils 0.1 thou/uL (0.0-0.7); #Lymphocytes 1.5 thou/uL (1.20-3.40); #Monocytes 1.2 thou/uL (0.11-0.59); #Neutrophils 12.5 thou/uL (1.40-6.50); %Basophils 0.2 % (0.0-1.0); %Eosinophils 0.3 % (0.0-10.0); %Monocytes 7.9 % (0.0-10.0); %Neutrophils 81.7 % (42.0-75.0); Mean Corpuscular HGB CONC 31.7 g/dL (32.0-36.0); Mean Corpuscular Hemoglobin 30.1 pg (27.0-31.0); Mean Corpuscular Volume 95.1 fL (78.0-98.0); Mean Platelet Volume 7.7 fL (7.4-10.4); Platelet Count 362 thou/uL (130-400); RBC Distribution Width 12.8 % (11.5-14.5); Red Blood Cell (RBC) Count 3.32 mill/uL (4.70-6.10); White Blood Cell (WBC) Count 15.3 thou/uL (4.8-10.8)
[2021-12-13] MEDS: Acetaminophen 500 MG TAB PO SCH ×2 (05:51→13:16)
[2021-12-13 06:17] LABS: Anion Gap 11 mmol/L (10-20); BUN (Urea Nitrogen) 10 mg/dL (8.4-25.7); Calc. Creatinine Clearance 128 mL/min (70-130); Calcium 8.1 mg/dL (7.8-10.44); Carbon Dioxide 25 mmol/L (22-29); Glucose 119 mg/dL (70-105); Magnesium 2.1 mg/dL (1.6-2.6); Phosphorus 2.6 mg/dL (2.3-4.7); Potassium 4.2 mmol/L (3.5-5.1); Sodium 139 mmol/L (136-145)
[2021-12-13 06:42] LABS: Chloride 107 mmol/L (98-107)
[2021-12-13] MEDS ORDERED: PHOS-NAK 1 PKT PACK PO SCH (09:00)
[2021-12-13] MEDS: Bacitracin 1 PK TOP SCH ×3 (09:22→21:03)
[2021-12-13] MEDS: Pantoprazole 40 MG VIAL IVP SCH (09:22)
[2021-12-13] MEDS: Piperacillin/Tazobactam 3.375 GM in Sodium Chloride 0.9% 100 ML IVPB SCH ×2 (09:23→16:52)
[2021-12-13] MEDS: Amlodipine 10 MG TAB PO SCH (09:23)
[2021-12-13] MEDS: Enoxaparin Sodium 40 MG/0.4 ML SYRINGE SC SCH (21:03)
[2021-12-14] MEDS: Piperacillin/Tazobactam 3.375 GM in Sodium Chloride 0.9% 100 ML IVPB SCH ×2 (00:57→08:38)
[2021-12-14] MEDS: Acetaminophen 500 MG TAB PO SCH ×6 (00:58→23:25)
[2021-12-14 05:42] LABS: #Eosinphils 0.3 thou/uL (0.0-0.7); #Lymphocytes 2.2 thou/uL (1.20-3.40); #Monocytes 1.2 thou/uL (0.11-0.59); #Neutrophils 7.8 thou/uL (1.40-6.50); %Basophils 0.4 % (0.0-1.0); %Eosinophils 2.9 % (0.0-10.0); %Lymphocytes 18.7 % (21.0-51.0); %Monocytes 10.6 % (0.0-10.0); %Neutrophils 67.4 % (42.0-75.0); Hemoglobin 10.6 g/dL (14.0-18.0); Mean Corpuscular HGB CONC 31.6 g/dL (32.0-36.0); Mean Platelet Volume 7.4 fL (7.4-10.4); Platelet Count 355 thou/uL (130-400); RBC Distribution Width 12.7 % (11.5-14.5); Red Blood Cell (RBC) Count 3.55 mill/uL (4.70-6.10); White Blood Cell (WBC) Count 11.6 thou/uL (4.8-10.8)
[2021-12-14] MEDS ORDERED: PHOS-NAK 1 PKT PACK PO SCH (08:00)
[2021-12-14] MEDS: Amlodipine 10 MG TAB PO SCH (08:38)
[2021-12-14] MEDS: Bacitracin 1 PK TOP SCH ×3 (08:40→20:50)
[2021-12-14] MEDS: Amoxicillin/Potassium Clav 875 MG TAB PO SCH ×2 (09:59→20:50)
[2021-12-14] MEDS: Pantoprazole 40 MG VIAL IVP SCH (12:40)
[2021-12-14] MEDS: Enoxaparin Sodium 40 MG/0.4 ML SYRINGE SC SCH (20:51)
[2021-12-15] MEDS: Acetaminophen 500 MG TAB PO SCH ×4 (05:06→23:49)
[2021-12-15 05:29] LABS: #Basophils 0.1 thou/uL (0.0-0.2); #Eosinphils 0.6 thou/uL (0.0-0.7); #Lymphocytes 2.6 thou/uL (1.20-3.40); #Monocytes 1.2 thou/uL (0.11-0.59); #Neutrophils 7.5 thou/uL (1.40-6.50); %Basophils 0.5 % (0.0-1.0); %Eosinophils 5.3 % (0.0-10.0); %Lymphocytes 21.8 % (21.0-51.0); %Neutrophils 62.5 % (42.0-75.0); Hemoglobin 11.3 g/dL (14.0-18.0); Mean Corpuscular Hemoglobin 29.5 pg (27.0-31.0); Mean Corpuscular Volume 95.1 fL (78.0-98.0); Mean Platelet Volume 7.2 fL (7.4-10.4); Platelet Count 386 thou/uL (130-400); RBC Distribution Width 12.6 % (11.5-14.5); Red Blood Cell (RBC) Count 3.84 mill/uL (4.70-6.10)
[2021-12-15] MEDS: Amlodipine 10 MG TAB PO SCH (08:53)
[2021-12-15] MEDS: Amoxicillin/Potassium Clav 875 MG TAB PO SCH ×2 (08:53→20:08)
[2021-12-15] MEDS: Bacitracin 1 PK TOP SCH ×3 (08:55→20:08)
[2021-12-15] MEDS: Enoxaparin Sodium 40 MG/0.4 ML SYRINGE SC SCH (20:08)
[2021-12-16] MEDS: Acetaminophen 500 MG TAB PO SCH ×2 (05:23→12:12)
[2021-12-16] MEDS: Amlodipine 10 MG TAB PO SCH (09:04)
[2021-12-16] MEDS: Amoxicillin/Potassium Clav 875 MG TAB PO SCH ×2 (09:05→15:29)
[2021-12-16] MEDS: Bacitracin 1 PK TOP SCH ×2 (09:05→15:08)
[2021-12-16 11:32] VITALS: BP 110/65; TEMP 97.5
== END 2021-12-16 14:20 | disposition home or self-care (01) | DRG 329 ==
LOC: ERS 09:55 → SDC 13:25 → SJJU 22:21
PROVIDERS: ADMIT Surgery; ATTEND Surgery
PROC: 0FB40ZZ Excision of Gallbladder, Open Approach (ICD-10-PCS; principal; 2021-11-28)
PROC: 0D1N0Z4 Bypass Sigmoid Colon to Cutaneous, Open Approach (ICD-10-PCS; 2021-11-28)
PROC: 0DBN0ZZ Excision of Sigmoid Colon, Open Approach (ICD-10-PCS; 2021-11-28)
PROC: 0DJD8ZZ Inspection of Lower Intestinal Tract, Via Natural or Artificial Opening Endoscopic (ICD-10-PCS; 2021-11-28)
PROC: 0F7C8DZ Dilation of Ampulla of Vater with Intraluminal Device, Via Natural or Artificial Opening Endoscopic (ICD-10-PCS; 2021-12-04)
PROC: BF131ZZ Fluoroscopy of Gallbladder and Bile Ducts using Low Osmolar Contrast (ICD-10-PCS; 2021-12-04)
PROC: 0F798ZZ Dilation of Common Bile Duct, Via Natural or Artificial Opening Endoscopic (ICD-10-PCS; 2021-12-04)
PROC: 0D9W3ZZ Drainage of Peritoneum, Percutaneous Approach (ICD-10-PCS; 2021-12-11)
PROC: 0D9670Z Drainage of Stomach with Drainage Device, Via Natural or Artificial Opening (ICD-10-PCS; 2021-12-12)
PROC: 0DNU4ZZ Release Omentum, Percutaneous Endoscopic Approach (ICD-10-PCS; 2021-12-12)
PROC: 0F9 Hepatobiliary System and Pancreas, Drainage (ICD-10-PCS; 2021-12-12)
DX: S36.63XA Laceration of rectum, initial encounter (principal); K65.9 Peritonitis, unspecified; K82.2 Perforation of gallbladder; K83.2 Perforation of bile duct; K75.0 Abscess of liver; K65.1 Peritoneal abscess; K80.12 Calculus of gallbladder with acute and chronic cholecystitis without obstruction; K56.50 Intestinal adhesions [bands], unspecified as to partial versus complete obstruction; K91.89 Other postprocedural complications and disorders of digestive system; S36.533A Laceration of sigmoid colon, initial encounter; R00.0 Tachycardia, unspecified; K52.89 Other specified noninfective gastroenteritis and colitis; F41.9 Anxiety disorder, unspecified; I10 Essential (primary) hypertension; F32.A Depression, unspecified; E83.39 Other disorders of phosphorus metabolism; D72.829 Elevated white blood cell count, unspecified; Y83.8 Other surgical procedures as the cause of abnormal reaction of the patient, or of later complication, without mention of misadventure at the time of the procedure; Z20.822 Contact with and (suspected) exposure to COVID-19; Z72.89 Other problems related to lifestyle; Z79.899 Other long term (current) drug therapy; Z82.49 Family history of ischemic heart disease and other diseases of the circulatory system; Z80.9 Family history of malignant neoplasm, unspecified
CPT/HCPCS: 36415; 49020; 71045; 74022; 74177; 74330; 76700; 77002; 80048; 80053; 80076; 80306; 83690; 83735; 83880; 84100; 84145; 84484; 85025; 85610; 85730; 86850; 86900; 86901; 88304; 88307; 93005; 93010; 93970; 96365; A4649; C1713; C1776; C2617; C9113; J0171; J0360; J1100; J1170; J1650; J1885; J1956; J2250; J2270; J2370; J2405; J2543; J2704; J3010; J3475; J3480; J3490; J7030; J7050; J7120; Q9967; S0020; S0028; U0002; U0003; U0005

== ENCOUNTER 2022-01-26 12:06 | Inpatient (IN) | payer SELFPAY ==
[2022-01-26 12:29] VITALS: BMI 26.4
[2022-01-26] MEDS ORDERED: Ondansetron PF 4 MG/2 ML Vial IVP PRN (14:16)
[2022-01-26] MEDS ORDERED: Morphine 2 MG/ML VIAL SLOW IVP PRN (14:33)
[2022-01-26] MEDS ORDERED: hydrALAZINE 20 MG/ML VIAL SLOW IVP PRN (14:36)
[2022-01-26] MEDS ORDERED: Sodium Chloride 0.9% 1,000 ML IV SCH (14:45)
[2022-01-26] MEDS ORDERED: Magnesium Citrate 300 ML BOT PO SCH (21:30)
[2022-01-27 07:16] LABS: Hemoglobin 14.3 g/dL (14.0-18.0); Mean Corpuscular HGB CONC 31.6 g/dL (32.0-36.0); Mean Corpuscular Hemoglobin 28.1 pg (27.0-31.0); Platelet Count 196 thou/uL (130-400); RBC Distribution Width 13.7 % (11.5-14.5); Red Blood Cell (RBC) Count 5.08 mill/uL (4.70-6.10); White Blood Cell (WBC) Count 8.2 thou/uL (4.8-10.8)
[2022-01-27 07:27] LABS: INR-International Normal Ratio 1.1
[2022-01-27 07:41] LABS: Anion Gap 12 mmol/L (10-20); BUN (Urea Nitrogen) 7 mg/dL (8.4-25.7); Calc. Creatinine Clearance 127 mL/min (70-130); Carbon Dioxide 24 mmol/L (22-29); Chloride 106 mmol/L (98-107); Estimated GFR 110; Glucose 95 mg/dL (70-105); Potassium 3.7 mmol/L (3.5-5.1); Sodium 138 mmol/L (136-145)
[2022-01-27] MEDS: Enoxaparin Sodium 40 MG/0.4 ML SYRINGE SC SCH ×2 (08:33→08:38)
[2022-01-27] MEDS: Amlodipine 10 MG TAB PO SCH (08:33)
[2022-01-28] MEDS: Acetaminophen 325 MG TAB PO PRN ×2 (08:19→17:36)
[2022-01-28] MEDS: Amlodipine 10 MG TAB PO SCH ×2 (08:20→08:22)
[2022-01-28] MEDS: Enoxaparin Sodium 40 MG/0.4 ML SYRINGE SC SCH (08:20)
[2022-01-28] MEDS ORDERED: Polyethylene Glycol 3350 17 GM Packet PO PRN (11:00)
[2022-01-28 16:55] VITALS: BP 132/86; TEMP 98.4
== END 2022-01-28 17:56 | disposition home or self-care (01) | DRG 392 ==
LOC: T4-A 12:06 → OBSVTOIN 14:19
PROVIDERS: ADMIT Internal Medicine; ATTEND Internal Medicine
DX: K59.00 Constipation, unspecified (principal); Z20.822 Contact with and (suspected) exposure to COVID-19; I10 Essential (primary) hypertension; Z79.899 Other long term (current) drug therapy; Z90.49 Acquired absence of other specified parts of digestive tract; Z82.49 Family history of ischemic heart disease and other diseases of the circulatory system; Z93.3 Colostomy status
CPT/HCPCS: 36415; 80048; 85027; 85610; 97139; J1650; J7050; U0003; U0005

== ENCOUNTER 2022-02-19 06:20 | Day surgery (SDC) | payer OTHER ==
[2022-02-19] MEDS ORDERED: Fentanyl 100 MCG/2 ML VIAL ONE (09:19)
[2022-02-19] MEDS ORDERED: Rocuronium Bromide 10 MG/ML (10ML VIAL) ONE (09:21)
[2022-02-19] MEDS ORDERED: Lidocaine 1% MPF 2 ML VIAL ONE (09:21)
[2022-02-19] MEDS ORDERED: Ondansetron PF 4 MG/2 ML Vial ONE (09:21)
[2022-02-19] MEDS ORDERED: Dexamethasone 20 MG/5 ML VIAL ONE (09:21)
[2022-02-19] MEDS ORDERED: Neostigmine Methylsulfate 3 MG/3 ML SYRINGE ONE (09:21)
[2022-02-19] MEDS ORDERED: Phenylephrine 10 MG/ML VIAL ONE (09:21)
[2022-02-19] MEDS ORDERED: Glycopyrrolate 0.2 MG/ML 5 ML SYRINGE ONE (09:21)
[2022-02-19] MEDS ORDERED: PROPOFOL 200 MG/20 ML VIAL ONE (09:21)
[2022-02-19] MEDS ORDERED: Iopamidol 30 ML ONE (09:41)
== END 2022-02-19 19:23 | disposition home or self-care (01) ==
LOC: SDC 06:20
PROVIDERS: ATTEND Internal Medicine Gastroenterology
PROC: 0FPB8DZ Removal of Intraluminal Device from Hepatobiliary Duct, Via Natural or Artificial Opening Endoscopic (ICD-10-PCS; principal; 2022-02-19)
DX: Z46.59 Encounter for fitting and adjustment of other gastrointestinal appliance and device (principal); I10 Essential (primary) hypertension; Z79.899 Other long term (current) drug therapy; Z20.822 Contact with and (suspected) exposure to COVID-19; Z93.3 Colostomy status
CPT/HCPCS: 74330; 87811; J1100; J2370; J2405; J2704; J3010; Q9967

== ENCOUNTER 2022-10-10 12:27 | Emergency (ER) | payer SELFPAY ==
[2022-10-10] MEDS ORDERED: Ondansetron PF 4 MG/2 ML Vial ONE (13:24)
[2022-10-10] MEDS ORDERED: Morphine 4 MG/ML VIAL ONE (13:24)
[2022-10-10 13:28] LABS: #Basophils 0.1 thou/uL (0.0-0.2); #Eosinphils 0.1 thou/uL (0.0-0.7); #Lymphocytes 1.7 thou/uL (1.20-3.40); #Monocytes 0.8 thou/uL (0.11-0.59); #Neutrophils 6.7 thou/uL (1.40-6.50); %Basophils 0.7 % (0.0-1.0); %Eosinophils 1.4 % (0.0-10.0); %Lymphocytes 18.2 % (21.0-51.0); %Monocytes 8.7 % (0.0-10.0); Hemoglobin 17.8 g/dL (14.0-18.0); Mean Corpuscular HGB CONC 31.7 g/dL (32.0-36.0); Mean Corpuscular Hemoglobin 29.2 pg (27.0-31.0); Mean Corpuscular Volume 92.2 fl (78.0-98.0); Mean Platelet Volume 7.7 fL (7.4-10.4); Platelet Count 174 10x3/uL (130-400); RBC Distribution Width 12.4 % (11.5-14.5); White Blood Cell (WBC) Count 9.5 10x3/uL (4.8-10.8)
[2022-10-10 13:59] LABS: ALT (SGPT) 13 U/L (8-55); AST (SGOT) 17 U/L (5-34); Albumin 4.5 g/dL (3.5-5.0); Alkaline Phosphatase 67 U/L (40-110); Anion Gap 12 mmol/L (10-20); BUN (Urea Nitrogen) 14 mg/dL (8.4-25.7); Calc. Creatinine Clearance 0 mL/min (70-130); Calcium 9.6 mg/dL (7.8-10.44); Carbon Dioxide 26 mmol/L (22-29); Chloride 106 mmol/L (98-107); Estimated GFR 89; Glucose 103 mg/dL (70-105); Lipase 24 U/L (8-78); Potassium 3.6 mmol/L (3.5-5.1); Protein, Total 7.5 g/dL (6.0-8.3); Sodium 140 mmol/L (136-145)
[2022-10-10] MEDS ORDERED: Iopamidol-370 76% 500 ML MDV (1 ML CHARGE) ONE (15:38)
== END 2022-10-10 15:32 | disposition home or self-care (01) ==
LOC: ERS 12:27
DX: R10.13 Epigastric pain (principal); R10.31 Right lower quadrant pain; R11.2 Nausea with vomiting, unspecified; I10 Essential (primary) hypertension
CPT/HCPCS: 36415; 74177; 80053; 83690; 85025; 93005; 96374; 96375; J2270; J2405; Q9967